=== PATIENT | female | born 1955 | race Caucasian/White ===

== ENCOUNTER 2017-02-22 07:02 | Day surgery (SDC) | payer MEDICARE, OTHER ==
[2017-02-22] MEDS ORDERED: Cyanocobalamin (Vitamin B12) 1,000 MCG/ML SDV IM ONE (08:00)
[2017-02-22] MEDS ORDERED: Lactated Ringers 1,000 ML IV SCH (08:00)
[2017-02-22] MEDS ORDERED: Propofol 200 MG/20 ML SDV ONE (08:09)
[2017-02-22] MEDS ORDERED: Midazolam 1 MG/ML 2 ML SDV ONE (08:09)
[2017-02-22] MEDS ORDERED: fentaNYL 100 MCG/2 ML SDV ONE (08:09)
[2017-02-22] MEDS ORDERED: Glycopyrrolate 0.2 MG/ML 2 ML SYRINGE IVPUSH ONE (08:30)
[2017-02-22] MEDS ORDERED: MVI, Adult with Vitamin K 10 ML, Thiamine 200 MG, Chromium/Copper/Mang/Selen/Zn 1 ML in... IV ONE ×4 (09:00)
[2017-02-22] MEDS ORDERED: Ondansetron 4 MG/2 ML SDV ONE (09:19)
[2017-02-22 12:14] VITALS: BP 98/56
--- NOTE | 2017-02-26 07:59 | OR ---
DATE OF PROCEDURE: 02/22/2017 PREOPERATIVE DIAGNOSES: Epigastric pain and status post Angy-en-Y gastric bypass. POSTOPERATIVE DIAGNOSIS: Retained esophageal ingested contents without any mechanical obstruction, suggestive of esophageal dysmotility. PROCEDURE: Upper GI endoscopy (85635). ANESTHESIA: IV sedation. INDICATION FOR PROCEDURE: The patient is status post gastric bypass and subsequently additional procedures, who now presents with some problems with epigastric discomfort and sense of dysphagia. The plan is to proceed with upper GI endoscopy with biopsies and/or dilation as indicated. Potential risks of the procedure including bleeding and perforation were discussed, and the patient wishes to proceed. DETAILS OF PROCEDURE: The patient was taken to the operating room and placed in a left lateral decubitus position. IV sedation was administered, after which the upper GI endoscope was passed orally through the limb of the esophagus, through what is essentially the esophagojejunostomy with a tiny rim of gastric mucosa remaining and then from there into the Angy limb roughly 20 cm. The patient had quite a bit of retained solid food within the esophagus and entered the anastomosis. The blind limb had some food within it, but did not appear to be acting as a reservoir per se. The anastomosis leading into the remainder of the limb was widely opened and the scope could be passed well beyond that point without any evidence of obstruction. The esophagus was somewhat dilated and overall picture was suggestive of esophageal dysmotility causing the patient's symptoms rather than any mechanical obstructive cause. The scope was then withdrawn, the above findings reconfirmed, and the procedure then concluded. The patient will be counseled in terms of eating behavior. She should be chewing the food well, eating in an upright position, and remain probably upright for half an hour after the meal and then washing the solid food down at the end of the meal with some liquids of her choice to try to wash the solid food beyond the upper GI tract level. Dietary will be seeing the patient postoperatively. She will be following up with Lisa He in 6 weeks in [facility]. Judson Fisher MD /[id number]
== END 2017-02-22 12:45 | disposition home or self-care (01) ==
LOC: JP.SDS 07:02
PROVIDERS: ATTEND Surgery
DX: T18.128A Food in esophagus causing other injury, initial encounter (principal); Z91.041 Radiographic dye allergy status
CPT/HCPCS: 43235; J2250; J2405; J2704; J3010; J3420; J7120